=== PATIENT | female | born 2000 | race African-American/Black ===

== ENCOUNTER 2020-06-22 00:42 | Outpatient (CLI) | payer OTHER ==
[~2020-06-22] VITALS: Ht 162.6 cm; Wt 82.1 kg
[2020-06-22] VITALS (8 sets, daily range): BP systolic 120–133; BP diastolic 68–85
[2020-06-22] MEDS ORDERED: PRENTAB9 PO (01:10)
[2020-06-22] MEDS ORDERED: MAPA500T2 PO (01:10)
== END 2020-06-22 06:45 | disposition home or self-care (01) ==
LOC: M LDO 00:42
PROVIDERS: ATTEND Obstetrics & Gynecology
DX: O47.1 False labor at or after 37 completed weeks of gestation (principal); Z3A.39 39 weeks gestation of pregnancy
CPT/HCPCS: 59025; G0378; G0463

== ENCOUNTER 2020-06-26 10:26 | Inpatient (IN) | payer OTHER ==
[~2020-06-26] VITALS: Ht 162.6 cm; Wt 81.4 kg
[2020-06-26] VITALS (41 sets, daily range): BP systolic 94–134; BP diastolic 57–92
[~2020-06-26 10:26] MED LIST: MAPA500T2 PO; PRENTAB9 PO
--- NOTE | 2020-06-26 12:11 | REPVR ---
PROCEDURE INFORMATION: Exam: US Biophysical Profile Without Non-Stress Test Exam date and time: 06/26/2020 11:53 AM Age: 19 years old Clinical indication: Screening exam; Encounter for screening of mother; Third; ; Additional info: Non reassuring nst TECHNIQUE: Imaging protocol: US biophysical profile without non-stress testing. COMPARISON: No relevant prior studies available. FINDINGS: Gestation: Single intrauterine gestation. heart rate: Heart rate measures 161 bpm. Presentation: Cephalic presentation. Placenta: Anterior grade 2/3 placenta. No placenta previa. Amniotic fluid index: Amniotic fluid index measures 13.3 cm. BIOPHYSICAL PROFILE: Breathin/2 Gross body movements: 2/2 tone: 2/2 Qualitative amniotic fluid: 2/2 Biophysical Profile Score: 8/8 DOPPLER: Umbilical artery Doppler: Umbilical artery S/D ratio measures 2.6, within normal limits. IMPRESSION: Biophysical profile score measures 8/8. Electronically signed by: Sheyla Maldonado On 06/26/2020 12:11:02 PM
[2020-06-26] MEDS ORDERED: LR 1,000 ML IV SCH (12:30)
[2020-06-26] MEDS ORDERED: LACTATED RINGER'S 1000 ML IV STA (12:30)
--- NOTE | 2020-06-26 13:06 | HPEPDOC ---
Obstetrical History & Physical General Date of Admission Jun 26, 2020 at 12:27 History of Present Illness 19 y/o with SALMA of 06/25/2020 presents to L&D today with complaints of contractions since 0300 this morning. She denies leaking of fluid, vaginal bleeding, and reports positive movement. Chief Complaint: Contractions, term Information Provided By: Patient Age: 19 : 2 Term: 1 Pre-term: 0 Abortions: 0 Livin Care Care: Limited Care (Late care) Number of Visits: 4 Dating Final EDC: Jun 25, 2020 Final EDC for Daily Update: Jun 25, 2020 Final EDC by: LMP LMP: Sep 19, 2019 EGA at Admission: 40 (+1) Antepartum Course Diagnos(e)s Late care starting at 33w2d, short interval , history of GHTN Height (inches): 63 Pre- weight (lbs.): 152 Admission Weight (lbs.): 181 Change in Weight (lbs.): 29 Past Medical History Past Obstetrical History : Past Obstetrical History: Multigravida Date of Delivery: Aug 09, 2019 Gestation: 39 Type of Delivery: Spontaneous Vaginal Del. Sex of : Female Complications: Yes (GHTN) DIRECTOR WORKFORCE MANAGEMENT History: No pertinent history Past Medical History Surgical History: Denies/None Family History Significant Family History: Diabetes (Paternal grandmother and paternal grandfather), Hypertension (Mother and Father), Other (Cancer (unsecified) paternal grandfather) Social History Marital Status: Family situation: Spouse/partner home Psychosocial History: No pertinent psych hx * Smoker: non-smoker Alcohol: Denies Drugs: denies Abuse Violence Screening Have you been hit/kicked/slapp: No Have you been sexually assault: No Imunizations Tdap status: current Influenza Status: declined Allergies Coded Allergies: SEAFOOD (Verified Allergy, Severe, TONGUE SWELLS, 06/26/20) apple (Verified Allergy, Severe, TONGUE SWELLS, 06/26/20) Medications Scheduled No.137/Iron/Folic Acd ( Vitamin Tablet) 1 Each Tablet, 1 TAB PO DAILY Scheduled PRN Acetaminophen (Mapap) 500 Mg Tablet, 1,000 MG PO PRN PRN for PAIN Physical Examination Physical Examination GENERAL: Alert and oriented times three. BREAST: . ABDOMEN: Gravid and non-tender to touch. FETUS: Is vertex (VTX) by sterile vaginal examination (SVE), fetus is vertex (VTX) by Agustin. HEART RATE: Regular rate and rhythm. LUNGS: Clear to auscultation (CTA). EXTREMITIES: No edema. No clonus. Deep tendon reflexes (DTRs) + . Vital Signs/I&O Vital Signs Date Time Temp Pulse Resp B/P (MAP) Pulse Ox O2 Delivery O2 Flow Rate FiO2 06/26/20 11:39 75 16 123/74 (90) 06/26/20 10:42 97.9 97 Room Air Laboratory Data 24H LABS Laboratory Tests 2 06/26/20 12:31: Serology Scanned Report Hepatitis B Testing Pertinent Laboratoy Data Blood Type: O+ RBC Antibody Screen: Negative HIV: Negative Hepatitis B: Negative Rapid Plasma Reagin: Nonreactive Rubella: Immune Varicella: Immune Chlamydia/Gonorrhea: Negative Group B Streptococcus: Negative Glucose Tolerance Test: 116 Diag/Inter Therapy Late care at 33w2d, short interval , Hx of [facility] Anatomy Ultrasound Ultrasound Date: May 10, 2020 Placenta Location: Anterior Normal Anatomy: Yes Placenta Previa: No Estimated Weight (grams): 1900 Steroid Therapy Steroid Therapy: No Vaginal Examination Dilation: 6 cm Effacement: 80% Station: -2 Cervical Consistency: Soft Cervical Position: Anterior Presentation: Cephalic presentation Position: Vertex (occiput) Tocometer Multi-drug resistant Organism: No history of MDRO Assessment/Plan Assessment [Patient] is a [19]-year-old (G)[2] para (P)[1]-[0]-[0]-[1] at [40]+[1] weeks by LMP and consistent with [33.2]-week ultrasound. Presents to Labor and Delivery (L&D) [with complaints of contractions since 0300 this morning. She denies vaginal bleeding, leaking of fluid, and reports positive movement]. Plan Admit and orient. Benefits Specialist and consent. Diet: [clear liquids]. Group B Streptococcus (GBS) [negative]. Labs and intravenous (IV) per unit protocol. Counseled on Pitocin for augmentation if needed. Lactated Ringers (LR): Bolus [1000] mL, then at [125] mL/hr. Epidural upon patient request Anticipate [normal spontaneous delivery ()]. C-S as appropriate. Labor and Delivery Counseling Discussed risks, benefits, and alternatives for labor and delivery, hemorrhage risks, and need for section if indicated. Patient verbalized understanding of all instructions and counseling and is without any further questions at this time. TOREY JOHNSON CNM Jun 26, 2020 13:06
[2020-06-26 13:18] LABS: HEMATOCRIT 36.4 % (36.0-47.0); HEMOGLOBIN 12.2 g/dl (12.0-15.5); MEAN CORPUSCULAR HEMOGLOBIN 30.9 pg (27.0-33.0); MEAN CORPUSCULAR HGB CONC 33.5 g/dl (32.0-36.5); MEAN CORPUSCULAR VOLUME 92.2 fl (80.0-96.0); PLATELET COUNT, AUTOMATED 203 10^3/uL (150-450); RED BLOOD COUNT 3.95 10^6/uL (4.00-5.40); WHITE BLOOD COUNT 10.6 10^3/uL (4.0-10.0)
[2020-06-26] MEDS ORDERED: FENTANYL 2MCG/ML ROPIVACAINE 0.2% IN 0.9% NACL 100ML IVBAG As Ordered ONE (14:08)
[2020-06-26] MEDS ORDERED: EPIDURAL/PCA KEYS XX PRN (15:45)
[2020-06-26] MEDS ORDERED: EPIDURAL COMMENT XX SCH (15:45)
[2020-06-26] MEDS ORDERED: ePHEDrine SULFATE 25 MG/5 ML(5MG/ML) SYRINGE IV PRN (15:45)
[2020-06-26] MEDS ORDERED: ONDANSETRON 4MG/2ML VIAL IV PRN (15:45)
[2020-06-26] MEDS ORDERED: NALOXONE INJ 0.4MG/1ML VIAL (J2310 PER 1MG) IV PRN (15:45)
[2020-06-26] MEDS ORDERED: FENTANYL/ROPIVACAINE/NACL BAG 100 ML EPIDURAL SCH (15:45)
[2020-06-26] MEDS ORDERED: diphenhydrAMINE 50MG/ML VIAL (J1200) IV PRN (15:45)
[2020-06-26] MEDS ORDERED: REFRIGERATOR IV KEYS XX PRN (15:45)
[2020-06-26] MEDS ORDERED: LACTATED RINGER'S 1000 ML IV PRN (15:45)
[2020-06-26] MEDS ORDERED: OXYTOCIN 30 UNITS IN 0.9% NaCl 500ML IV BAG (J2590) As Ordered ONE (19:07)
[2020-06-26] MEDS ORDERED: RHOGAM 300 MCG (1500 IU) INJ (J2790) IM SCH (20:30)
[2020-06-26] MEDS ORDERED: METHYLERGONOVINE MALEATE 0.2 MG TAB PO PRN (20:30)
[2020-06-26] MEDS ORDERED: DOCUSATE SODIUM 100 MG CAP PO PRN (20:30)
[2020-06-26] MEDS ORDERED: MOM 30ML SUSPENSION UDC PO PRN (20:30)
[2020-06-26] MEDS ORDERED: IBUPROFEN 600MG TAB PO PRN (20:30)
[2020-06-26] MEDS ORDERED: ANUSOL HC CREAM 30GM TOP PRN (20:30)
[2020-06-26] MEDS ORDERED: DIBUCAINE 1% OINTMENT 30GM TOP PRN (20:30)
[2020-06-26] MEDS ORDERED: ACETAMINOPHEN TAB 650MG DOSE (2X325MG) PO PRN (20:30)
[2020-06-26] MEDS ORDERED: ACETAMINOPHEN 500 MG TAB PO PRN (20:30)
[2020-06-26] MEDS ORDERED: MEASLES,MUMPS,RUBELLA VACCINE INJ (MMR-II) (90707) SC SCH (20:30)
--- NOTE | 2020-06-26 20:41 | DNPDOC ---
[facility] Delivery Note Delivery Note DATE OF DELIVERY: 06/25/2020 TIME OF : 2008 GENDER Male. APGARS: 9 and 9. WEIGHT: 3300 grams or 7 pounds 4 ounces. LACERATIONS:none ANESTHESIA: Epidural. COUNTS: 5 laparotomy sponges accounted for prior to after delivery. DELIVERY NOTE: On 06/25/20 at 2008, Mrs Anabel lam 19yo G2, now P2 had a spontaneous vaginal delivery of viable male , Apgars 9 and 9 and weight was 3300 g or 7 lbs. 4 oz. Head was delivered occiput anterior (OP), followed by delivery of the shoulders and corpus. Infant was handed to mom with a good cry. Cord was clamped times two and was cut by the father of baby under my direction. Placenta was then drained and delivered grossly intact. A premixed bag of 500 mL of normal saline with 30 units of Pitocin was then bolused along with uterine massage until the uterus was firm. On inspection,cervix, vagina, perineum was grossly intact and hemostatic. Mom and baby in recovery on stable condition. The couples decided to remain in son VICK Tadeo MD. Jun 26, 2020 20:41
[2020-06-26] MEDS ORDERED: OXYTOCIN DRIP 30 UNITS in IV 1 EA IV SCH (20:42)
[2020-06-27] MEDS: IBUPROFEN 800 MG TAB PO PRN ×2 (02:17→19:43)
[2020-06-27 06:00] VITALS: BP 115/63
--- NOTE | 2020-06-27 07:12 | IPNPDOC ---
Progress Note Date of Service: Jun 27, 2020 Day#: 1 Progress Note SUBJECT: Doing well without complaints. Ambulating, voiding and pain is well- controlled. Reports minimal lochia. +breast feeding OBJECTIVE: VITAL SIGNS: Within normal limits, afebrile. Alert and oriented times three. Abdomen: Fundus firm at U-2. Soft, NTTP. Ext: neg calf tenderness. ASSESSMENT: day #1 status post normal spontaneous vaginal delivery. Recovering in stable condition. PLAN: 1. Continue routine care 2. Discharge plans for tomorrow VS, I&O, 24H, Fishbone Vital Signs/I&O Vital Signs Date Time Temp Pulse Resp B/P (MAP) Pulse Ox O2 Delivery O2 Flow Rate FiO2 06/27/20 06:00 97.5 62 16 115/63 (80) 06/26/20 18:48 Room Air 06/26/20 18:34 100 I&O- Last 24 Hours up to 6 AM 06/27/20 05:59 Intake Total 1000 ml Output Total 800 ml Balance 200 ml Laboratory Data 24H LABS Laboratory Tests 2 06/26/20 12:31: Serology Scanned Report Hepatitis B Testing 06/26/20 12:55: Nucleated Red Blood Cells % (auto) 0.0, Syphilis Serology NONREACTIVE CBC/BMP Laboratory Tests 06/26/20 12:55 VICK DILLARD MD. Jun 27, 2020 07:11
[2020-06-27 07:20] VITALS: BP 115/63
[2020-06-27] MEDS: PRENATAL VITAMINS CHEWABLE TABLET PO SCH (07:30)
[2020-06-27] MEDS ORDERED: INFLUENZA QUADRIVALENT PF VACCINE 0.5ML SYRINGE IM ONE (09:00)
[2020-06-27 18:00] VITALS: BP 128/82
[2020-06-28 05:23] VITALS: BP 117/58
[2020-06-28] MEDS ORDERED: DOCU100C16 PO (06:42)
[2020-06-28] MEDS ORDERED: IBUP80TA PO (06:42)
[2020-06-28] MEDS ORDERED: DIBU10OI TOP (06:42)
[2020-06-28] MEDS: PRENATAL VITAMINS CHEWABLE TABLET PO SCH (08:56)
[2020-06-28] MEDS ORDERED: INFLUENZA QUADRIVALENT PF VACCINE 0.5ML SYRINGE IM ONE (09:00)
--- NOTE | 2020-07-01 18:13 | IPN ---
DATE: 06/27/2020 HISTORY: This patient and requested a circumcision of their male . PLAN: After discussing risks and benefits of the circumcision, the medical and non-medical indications, the penile block and after care expressed understanding of penile block and after care, signed the Consent Form, all questions were answered, 20 minute discussion, we await the clearance by the insurance actuary. TC
--- NOTE | 2020-07-16 11:37 | DSES ---
DATE OF ADMISSION: 06/26/2020 DATE OF DISCHARGE: 06/28/2020 This is a 19-year-old, 2, now para 2, admitted in active labor and had spontaneous vaginal delivery of a live male infant, weighing 7 pounds, 4 ounces (3300 grams) with Apgars of 9 and 9 at 1 and 5 minutes respectively. On her second day, we discussed phlebitis, cystitis, mastitis, metritis, and cellulitis, diet, exercise, pain management, and perineal, breast, and wound care. Discharge blood pressure 117/58, respirations 20, pulse 60, temperature 97.8. Her admitting hemoglobin was 12.2, hematocrit 36.4 and platelets were 203,000. The rest of the examination unremarkable. Normocephalic, atraumatic. Neck has full range of motion. Pupils equal and reactive to light. Distal pulses are symmetric. No evidence of DVT, PE or superficial phlebitis. Chest is clear bilaterally to bases. No wheezes or rhonchi. CVA tenderness. Abdomen is soft. Four-quadrant bowel sounds are noted. IN SUMMARY: A term gestation, delivered a live male , planning on discharge today. Medications were picked up at [facility]. Six weeks checkup at [facility]. All questions were answered; 20 minute discussion. TC
== END 2020-06-28 16:09 | disposition home or self-care (01) | DRG 807 ==
LOC: M LDO 10:26 → M LDI 12:27 → M OBS 22:15
PROVIDERS: ADMIT Registered Nurse Maternal Newborn; ATTEND Registered Nurse Maternal Newborn
PROC: 10E0XZZ Delivery of Products of Conception, External Approach (ICD-10-PCS; principal; 2020-06-26)
DX: O48.0 Post-term pregnancy (principal); Z37.0 Single live birth; Z3A.40 40 weeks gestation of pregnancy; Z91.013 Allergy to seafood; O09.31 Supervision of pregnancy with insufficient antenatal care, first trimester; O09.32 Supervision of pregnancy with insufficient antenatal care, second trimester

== ENCOUNTER 2020-11-02 13:52 | Emergency (ER) | payer OTHER ==
[~2020-11-02] VITALS: Ht 162.6 cm; Wt 81.4 kg
[2020-11-02 13:52] VITALS: BP 133/61
[~2020-11-02 13:52] MED LIST changes: +DIBU10OI TOP; +DOCU100C16 PO; +IBUP80TA PO
[2020-11-02] MEDS ORDERED: BIRTH CONTROL PO (13:56)
--- NOTE | 2020-11-02 14:24 | REP ---
INDICATION: wrist pain hand pain COMPARISON: None. TECHNIQUE: Four views right wrist. FINDINGS: There is no evidence of acute fracture, dislocation, or intrinsic bone disease. IMPRESSION: No fracture or dislocation. <Electronically signed by Ciaran Grossman > 11/02/20 [id number]
--- OUTSIDE RECORDS SUMMARY | 2020-11-02 14:25 | CCD | Continuity of Care Document ---
Author Author SALMA MUNOZ P Organization Unknown Address [address] [place] [address] [place] [address] Phone [phone] Care Team Providers Care Special Agent Secret Service Name Role Phone [employer] AUTM [phone] Abhijeet Rodriguez MD AUTM Unavailable [facility] AUTM Problems Description No Information Available Social History Type Date Description Comments Sex Unknown ETOH Use Denies alcohol use Tobacco Use Start: Unknown Patient has never smoked Smoking Status Reviewed: 08/19/20 Patient has never smoked Allergies, Adverse Reactions, Alerts Active Allergies Reaction Severity Comments Date Apples 10/27/2020 Seafood 10/27/2020 Inactive Allergies NKDA 08/19/2020 Medications Active Medications SIG Qnty Indications Ordering Provide r Date Prednisone 20mg Tablets 1 tab twice a day for 4 days 8tabs G56.01 Juaquin Nagy JR., M.D. 07/2021 Unknown BCP Unknown Tylenol Unknown Immunizations Description No Information Available Vital Signs Date Vital Result Comment 10/27/2020 5:21pm BP Systolic 128 mmHg BP Diastolic 87 mmHg Heart Rate 68 /min O2 % BldC Oximetry 97 % Body Temperature 98.4 F Weight 165.00 lb Height 64 inches 5'4" BMI (Body Mass Index) 28.3 kg/m2 Pain Level 7 08/19/2020 10:56am BP Systolic 118 mmHg BP Diastolic 71 mmHg Heart Rate 90 /min Respiratory Rate 16 /min O2 % BldC Oximetry 97 % Body Temperature 98.2 F Weight 168.00 lb Height 64 inches 5'4" BMI (Body Mass Index) 28.8 kg/m2 Pain Level 7 Results Description No Information Available Procedures Description No Information Available Medical Devices Description No Information Available Encounters Type Date Location Provider Dx Diagnosis Office Visit 10/27/2020 4:45p Main Office Elvia Munoz NP G56. 01 Carpal tunnel syndrome, right upper limb Office Visit 08/19/2020 11:00a Main Office HONORIO Goodwin S39 .012A Strain of muscle, fascia and tendon of lower back, init R10.84 Generalized abdominal pain Z20.828 Contact w and exposure to ot h viral communicable diseases Assessments Date Code Description Provider 10/27/2020 G56.01 Carpal tunnel syndrome, right up per limb Elvia Munoz NP 08/19/2020 S39.012A Strain of muscle, fa scia and tendon of lower back, initial encounter HONORIO Goodwin 08/19/2020 R10.84 Generalized abdominal pain Lee HONORIO Madrigal 08/19/2020 Z20.828 Contact with and (potter spected) exposure to other viral communicable diseases HONORIO Goodwin Plan of Treatment 10/27/2020 - Elvia Munoz NP* G56.01 Carpal tunnel syndrome, right upper limb* New Medication:* Prednisone 20 mg - 1 tab twice a day for 4 days * Comments:* symptoms & physical exam consistent with carpal tunnel syndromepatient will trial NSAIDs & short course steroids prior to cock-up splintpatient has a 4 month old son, encouraged to try to draft roller picker son with opposite/nondominant arm. f/u PRN or w/PCPpatient v/u & agrees to plan * All * Referral:* No Doctor Selected Functional Status Description No Information Available Mental Status Description No Information Available Referrals Refer to Reason for Referral Status Appt Date Created Sharath Jarrell PA Created [facility] [address] [place] [address] [phone]
--- OUTSIDE RECORDS SUMMARY | 2020-11-02 14:25 | CCD | Continuity of Care Document ---
Author Author SALMA MUNOZ P Organization Unknown Address [address] [place] [address] [place] [address] Phone [phone] Care Team Providers Care Issuing Operator Name Role Phone [employer] AUTM [phone] Problems Description No Information Available Social History [...] Date Location Provider Dx Diagnosis Office Visit 08/19/2020 11:00a Main Office HONORIO [...] syndromepatient will trial NSAIDs & short course steroidspatient has a 4 month old son, encouraged to try to pick and shovel man son with opposite/nondominant arm. f/u PRN or w/PCPpatient v/u & agrees to plan Functional Status Description No Information Available Mental Status Description No Information Available Referrals Refer to Reason for Referral Status Appt Date Sharath Jarrell PA Created [facility] [address] [place] [address] [phone]
--- OUTSIDE RECORDS SUMMARY | 2020-11-02 14:25 | CCD | Continuity of Care Document ---
Author Author SALMA RAMIREZ Organization Unknown Address [address] [place] [address] [place] [address] Phone [phone] Care Team Providers Care Rubbish Collection Supervisor Name Role Phone [employer] AUTM [phone] Problems Description No Information Available Social History Type Date Description Comments Sex Unknown ETOH Use Denies alcohol use Tobacco Use Start: Unknown Patient has never smoked Smoking Status Reviewed: 08/19/20 Patient has never smoked Allergies, Adverse Reactions, Alerts Description No Known Drug Allergies Medications Active Medications SIG Qnty Indications Ordering Provide r Date Unknown BCP Unknown Immunizations Description No Information Available Vital Signs Date Vital Result Comment 08/19/2020 10:56am BP Systolic 118 mmHg BP [...] communicable diseases Assessments Date Code Description Provider 08/19/2020 S39.012A Strain of muscle, fa scia and tendon of lower back, initial encounter HONORIO Goodwin 08/19/2020 R10.84 Generalized abdominal pain Lee HONORIO Madrigal 08/19/2020 Z20.828 Contact with and (potter spected) exposure to other viral communicable diseases HONORIO Goodwin Plan of Treatment No Information Available Functional Status Description No Information Available Mental Status Description No Information Available Referrals Description No Information Available
--- OUTSIDE RECORDS SUMMARY | 2020-11-02 14:25 | CCD | Continuity of Care Document ---
Author Author SALMA RAMIREZ Organization Unknown Address [address] [place] [address] [place] [address] Phone [phone] Care Team Providers Care Seat Mender Name Role Phone [employer] AUTM [phone] Problems Description No Information Available Social History [...] Reason for Referral Status Appt Date Sharath Ramirez PA Created [facility] [address] [place] [address] [phone]
--- OUTSIDE RECORDS SUMMARY | 2020-11-02 14:25 | CCD ---
Author Author [facility] Organization [facility] Address Unknown Phone Unavailable Care Team Providers Care Embalmer Apprentice Name Role Phone Kristin Stoneina WIRE LATHER Unavailable Unavailable Stone, Elvia WIRE LATHER Unavailable Unavailable Stone, Elvia WIRE LATHER Unavailable Unavailable Stone, Elvia WIRE LATHER Unavailable Unavailable Stone, Elvia WIRE LATHER Unavailable Unavailable Stone, Elvia WIRE LATHER Unavailable Unavailable Stone, Elvia WIRE LATHER Unavailable Unavailable Stone, Elvia WIRE LATHER Unavailable Unavailable Stone, Elvia WIRE LATHER Unavailable Unavailable Stone, Elvia WIRE LATHER Unavailable Unavailable Stone, Elvia WIRE LATHER Unavailable Unavailable LETTIERE, Jeane SCHMITZ PA Unavailable Unavailable LETTIERE, Jeane SCHMITZ PA Unavailable Unavailable LETTIERE, Jeane SCHMITZ PA Unavailable Unavailable LETTIERE, Jeane SCHMITZ PA Unavailable Unavailable LETTIERE, Jeane SCHMITZ PA Unavailable Unavailable LETTIERE, Jeane SCHMITZ PA Unavailable Unavailable LETTIERE, Jeane SCHMITZ PA Unavailable Unavailable LETTIERE, Jeane SCHMITZ PA Unavailable Unavailable LETTIERE, Jeane SCHMITZ PA Unavailable Unavailable LETTIERE, Jeane SCHMITZ PA Unavailable Unavailable LETTIERE, Jeane SCHMITZ PA Unavailable Unavailable LETTIERE, Jeane SCHMITZ PA Unavailable Unavailable LETTIERE, Jeane SCHMITZ PA Unavailable Unavailable LETTIERE, Jeane SCHMITZ PA Unavailable Unavailable LETTIERE, Jeane SCHMITZ PA Unavailable Unavailable LETTIERE, Jeane SCHMITZ PA Unavailable Unavailable LETTIERE, Jeane SCHMITZ PA Unavailable Unavailable LETTIERE, Jeane SCHMITZ PA Unavailable Unavailable LETTIERE, Jeane SCHMITZ PA Unavailable Unavailable LETTIERE, Jeane SCHMITZ PA Unavailable Unavailable LETTIERE, Jeane SCHMITZ PA Unavailable Unavailable LETTIERE, Jeane SCHMITZ PA Unavailable Unavailable LETTIERE, Jeane SCHMITZ PA Unavailable Unavailable LETTIERE, Jeane SCHMITZ PA Unavailable Unavailable LETTIERE, Jeane SCHMITZ PA Unavailable Unavailable LETTIERE, Jeane SCHMITZ PA Unavailable Unavailable LETTIERE, A AINLSEY PA Unavailable Unavailable LETTIERE, Jeane AINSLEY OLMEDO Unavailable Unavailable LETTIERE, Jeane AINSLEY OLMEDO Unavailable Unavailable Re-disclosure Warning The records that you are about to access may contain information from federally-assisted alcohol or drug abuse programs. If such information is present, then the following federally mandated warning applies: This information has been disclosed to you from records protected by federal confidentiality rules (42 CFR part 2). The federal rules prohibit you from making any further disclosure of this information unless further disclosure is expressly permitted by the written consent of the person to whom it pertains or as otherwise permitted by 42 CFR part 2. A general authorization for the release of medical or other information is NOT sufficient for this purpose. The Federal rules restrict any use of the information to criminally investigate or prosecute any alcohol or drug abuse patient.The records that you are about to access may contain highly sensitive health information, the redisclosure of which is protected by Article 27-F of the [facility] Public Health law. If you continue you may have access to information: Regarding HIV / AIDS; Provided by facilities licensed or operated by the [facility] Office of Mental Health; or Provided by the [facility] Office for People With Developmental Disabilities. If such information is present, then the following [facility] mandated warning applies: This information has been disclosed to you from confidential records which are protected by state law. State law prohibits you from making any further disclosure of this information without the specific written consent of the person to whom it pertains, or as otherwise permitted by law. Any unauthorized further disclosure in violation of state law may result in a fine or shelter sentence or both. A general authorization for the release of medical or other information is NOT sufficient authorization for further disc losure. Allergies and Adverse Reactions Type Description Substance Reaction Status Data Source(s ) Drug Allergy Drug Allergy NKDA [facility] ([facility], [facility]) Encounters Encounter Providers Location Date Indications Data Source(s ) Outpatient Attender: Elvia peter 10/27/2020 03:45:00 PM EST [facility] ([facility], [facility]) Outpatient Attender: AINSLEY mariscal 08/19/2020 10:00:00 AM EST [facility] ([facility], [facility]) Medications Medication Brand Name Start Date Product Form Dose Route Admi nistrative Instructions Pharmacy Instructions Status Indications Reaction Description Data Source(s) Prednisone 20 MG Oral Tablet Prednisone 10/27/2020 12:00:00 AM EST active [facility] ([facility]) Insurance Providers Payer name Policy type / Coverage type Policy ID Covered libertarian ID Covered libertarian's relationship to montalvo Policy [place] Plan Information [facility] [id number] [facility] [id number] [facility] O [id number] S [id number] Social History Code Duration Value Status Description Data Source(s ) Smoking 08/19/2020 12:00:00 AM EST Patient has never smoked co mpleted Patient has never smoked [facility] ([facility]) Vital Signs ID Date Data Source UNK Name Value Range Interpretation Code Description Data Source(s) Body mass index (BMI) [Ratio] 28.3 kg/m2 28.3 k g/m2 [facility] ([facility], [facility]) Body height 64 [in_i] 64 [in_i] [facility] ([facility]) 5'4" Body weight 165.00 [lb_av] 165.00 [lb_av] [facility] T ([facility]) Body temperature 98.4 [degF] 98.4 [degF] [facility] ([facility]) Oxygen saturation in Arterial blood by Pulse oximetry 97 % 97 % [facility] ([facility]) Heart rate 68 /min 68 /min [facility] ([facility]) Diastolic blood pressure 87 mm[Hg] 87 mm[Hg] [facility] Systolic blood pressure 128 mm[Hg] 128 mm[Hg] [facility] ([facility]) Body mass index (BMI) [Ratio] 28.8 kg/m2 28.8 k g/m2 [facility] ([facility]) Body height 64 [in_i] 64 [in_i] [facility] ([facility]) 5'4" Body weight 168.00 [lb_av] 168.00 [lb_av] [facility] T ([facility]) Body temperature 98.2 [degF] 98.2 [degF] [facility] ([facility], [facility]) Oxygen saturation in Arterial blood by Pulse oximetry 97 % 97 % [facility] ([facility], [facility]) Respiratory rate 16 /min 16 /min [facility] ( [facility], [facility]) Heart rate 90 /min 90 /min [facility] ([facility], [facility]) Diastolic blood pressure 71 mm[Hg] 71 mm[Hg] [facility] ([facility], [facility]) Systolic blood pressure 118 mm[Hg] 118 mm[Hg] [facility] ([facility], [facility])
--- NOTE | 2020-11-02 14:26 | REP ---
INDICATION: wrist pain hand pain COMPARISON: None. TECHNIQUE: Four views right hand. FINDINGS: There is no evidence of acute fracture, dislocation, or intrinsic bone disease. IMPRESSION: No fracture or dislocation. <Electronically signed by Ciaran Grossman > 11/02/20 [id number]
== END 2020-11-02 14:39 | disposition home or self-care (01) ==
LOC: M ED 13:52
DX: G56.01 Carpal tunnel syndrome, right upper limb (principal); Z91.013 Allergy to seafood; Z91.018 Allergy to other foods

== ENCOUNTER 2021-02-28 22:44 | Emergency (ER) | payer OTHER ==
[~2021-02-28] VITALS: Ht 162.6 cm; Wt 85.1 kg
[~2021-02-28 22:44] MED LIST changes: +BIRTH CONTROL PO; -DIBU10OI TOP; +DIBU28OI2 TOP
[2021-03-01] MEDS ORDERED: diphenhydrAMINE 50MG/ML VIAL (J1200) IV STA (00:39)
[2021-03-01] MEDS ORDERED: dexameTHASONE 20MG/5ML VIAL (J1100 PER 1MG) IV ONE (00:40)
[2021-03-01] MEDS ORDERED: FAMOTIDINE INJ 20MG/2ML VIAL (S0028 PER 1) IVP ONE (00:40)
[2021-03-01] MEDS ORDERED: BENA25CA4 PO (04:23)
[2021-03-01] MEDS ORDERED: PEPC1TAB5 PO (04:23)
[2021-03-01] MEDS ORDERED: PRED20TA PO (04:23)
[2021-03-01] MEDS ORDERED: EPIP0.3I2 IM (04:23)
[2021-03-01 04:40] VITALS: BP 126/88
== END 2021-03-01 04:44 | disposition home or self-care (01) ==
LOC: M ED 22:44
DX: R06.02 Shortness of breath (principal); T78.40XA Allergy, unspecified, initial encounter; Z91.013 Allergy to seafood; Z91.018 Allergy to other foods
CPT/HCPCS: 96374; 99283; J1100; J1200